=== PATIENT | male | born 1990 | race Caucasian/White ===

== ENCOUNTER 2018-04-19 19:03 | Emergency (ER) | payer OTHER ==
[2018-04-19] MEDS ORDERED: Ketorolac 10 MG Tab ONE ×3 (19:20→20:11)
--- NOTE | 2018-04-19 21:25 | ER ---
HPI: A 27-year-old male here with complaints of injuring his right knee. He was putting on some snow pads when he was going fishing and he slipped and fell with his right knee hitting the floor. The patient knew that something was wrong. He is convinced that he dislocated his knee. He states he tried to put it back in place a couple of times by hitting it on the floor, but that just was very painful and it did not work. The patient denies any other injuries. He denies any numbness or tingling distal to the knee. He is not currently taking any medications. OBJECTIVE: GENERAL APPEARANCE: The patient is awake and alert. No respiratory distress. He is uncomfortable from the pain. VITAL SIGNS: Reviewed. Blood pressure 145/93, pulse 72. Physical exam, the patient came in by ambulance with the knee immobilizer in place. I loosened this and examining the knee reveals an obvious deformity. It appears that the patella is dislocated in the lateral direction. The skin is intact. There is minimal swelling in this area. The patient's leg is slightly bent and then in an outward direction. The patient tells me he cannot straighten his leg or move it medially without pain. LAB AND X-RAY: X-rays were obtained. There is a patella dislocation. I am concerned about a possible fracture as well. I did consult with [facility] in [place]. I sent him the x-rays, he reviewed them and was also questioning a possible fracture at the superior pole of the patella. At this point, I reduced it. The patient is refusing any pain medication, telling me that if he lay still, the pain is just mild to moderate. To reduce the patella, I had nursing staff assist, and I straightened the patient's leg telling him to relax. While the leg was being straightened, the nursing staff was applying gentle medial pressure on the patella and it popped back in place within just a couple of seconds. The patient noted almost immediate relief. The post-reduction x-rays show the patella is back in place, and I do not see any obvious fracture at this time. DIAGNOSIS: Patella dislocation. TREATMENT PLAN: A small knee immobilizer will be given to the patient. He is to wear this for the next couple of days all of the time, removing it only for washing purposes, then he can start to take the immobilizer off for short periods of time while just walking around the house. Activity should be as tolerated. I will give him Toradol tablets 10 mg to take one tablet every 6 hours for the next couple of days and then p.r.n., he can use Tylenol in between. The patient does not want anything stronger. We will give him copies of the x-rays. I advised the patient that he needs to follow up with his primary care provider back home which is in the [facility] sometime next week. LESTER/LEATHA /[id number]
--- NOTE | 2018-04-20 11:25 | CR ---
RIGHT KNEE, 04/19/18 The patella appears to be dislocated laterally with respect to the patellar notch. No fractures. The tibia is angulated laterally with respect to the femur. This may be positional. [id number] [facility]
--- NOTE | 2018-04-20 11:28 | CR ---
RIGHT KNEE, 04/19/18 Comparison is made to a prior exam from earlier. The patella has been reduced and is in normal position with the patellar notch. There are multiple small osseous densities along the medial aspect of the patella which are probably small bony avulsions. No other fractures. There is a small joint effusion. [id number] [facility]
== END 2018-04-19 20:15 | disposition home or self-care (01) ==
LOC: LB.ED 19:03
DX: S83.004A Unspecified dislocation of right patella, initial encounter (principal); W00.0XXA Fall on same level due to ice and snow, initial encounter
CPT/HCPCS: 73560; 73562; 99283; A0425; A0429; A9270